=== PATIENT | female | born 1990 ===

== ENCOUNTER 2019-07-16 08:57 | Emergency (ER) | payer SELFPAY ==
[~2019-07-16] VITALS: Ht 172.7 cm; Wt 86.0 kg
[2019-07-16 09:02] VITALS: BP 130/86
[2019-07-16] MEDS ORDERED: PHEN97.511 PO (09:06)
== END 2019-07-16 10:26 | disposition left against medical advice (07) ==
LOC: EMS 08:59
DX: R10.9 Unspecified abdominal pain (principal); Z53.21 Procedure and treatment not carried out due to patient leaving prior to being seen by health care provider